=== PATIENT | male | born 1965 | race Caucasian/White ===

== ENCOUNTER 2018-01-19 00:19 | Emergency (ER) | payer BC ==
[2018-01-19 00:25] VITALS: TEMP 97.9
[2018-01-19] MEDS ORDERED: KETOROLAC 30 MG/ML 1 ML VIAL IVP STA (01:00)
[2018-01-19 01:35] LABS: Basophils # (A) 0.1 k/uL (0-0.2); Basophils % (A) 0 %; Eosinophils # (A) 0.2 k/uL (0-0.7); Eosinophils % (A) 1 %; HCT 45.6 % (39.0-53.0); HGB 16.2 gm/dL (13.0-17.5); Lymphocytes # (A) 2.8 k/uL (1.0-4.8); Lymphocytes % (A) 21 %; MCH 29.8 pg (25.0-35.0); MCHC 35.6 g/dL (31.0-37.0); MCV 83.6 fL (80.0-100.0); Mean Platelet Volume 7.3; Monocytes # (A) 0.9 k/uL (0-1.0); Monocytes % (A) 7 %; Neutrophils # (A) 9.2 k/uL (1.3-7.7); Neutrophils % (A) 68 %; Platelet Count 259 k/uL (150-450); RBC 5.45 m/uL (4.30-5.90); RDW 12.5 % (11.5-15.5); WBC 13.5 k/uL (3.8-10.6)
--- NOTE | 2018-01-19 01:53 | XR ---
EXAMINATION TYPE: XR foot complete LT DATE OF EXAM: 01/19/2018 COMPARISON: NONE HISTORY: Pain TECHNIQUE: 3 views FINDINGS: I see no fracture nor dislocation. Metatarsals are intact. The fourth toe iappears intact. Soft tissues appear normal. Joint spaces are normal. IMPRESSION: Negative left foot exam.
--- NOTE | 2018-01-19 02:13 | ED ---
General Adult HPI - General Chief complaint: Extremity Injury, Lower Stated complaint: FOOT INJURY/PAIN Time Seen by Provider: 01/19/18 00:38 Source: patient Mode of arrival: wheelchair Limitations: no limitations - History of Present Illness Initial comments: 52-year-old male patient presents to the emergency department today for evaluation of left great toe pain and swelling. Patient states that a few days ago he did accidentally kicked the dresser in the dark and broke his left fourth toe. States he had x-rays at his primary care physician's office which did confirm that the toe is fractured. Patient states that throughout the day today has left great toe has been hurting with ambulation. He states that the pain progressively worsened throughout the day. States at the end of the night when he looked at it was red and swollen. Patient denies any history of gout. Denies any significant intake of alcohol. Denies any history of similar symptoms. He states he did have chills earlier but denies any fever. Denies any known injury to the great toe. Patient denies any recent rash, shortness breath, chest pain, abdominal pain, nausea, vomiting, diarrhea, constipation, back pain, numbness, tingling, dizziness, weakness, hematuria, dysuria, urinary urgency, urinary frequency, headache, visual changes, or any other complaints. - Related Data Allergies Allergy/AdvReac Type Severity Reaction Status Date / Time acetaminophen Allergy Unknown Verified 01/19/18 00:25 [From Tylenol-Codeine #3] codeine Allergy Unknown Verified 01/19/18 00:25 [From Tylenol-Codeine #3] sulfamethoxazole Allergy Unknown Verified 01/19/18 00:26 [From Bactrim] trimethoprim [From Bactrim] Allergy Unknown Verified 01/19/18 00:26 Review of Systems ROS Statement: Those systems with pertinent positive or pertinent negative responses have been documented in the HPI. ROS Other: All systems not noted in ROS Statement are negative. Past Medical History Past Medical History: Hypertension History of Any Multi-Drug Resistant Organisms: None Reported Past Surgical History: No Surgical Hx Reported Past Psychological History: No Psychological Hx Reported Smoking Status: Never smoker Past Alcohol Use History: Occasional Past Drug Use History: None Reported General Exam Limitations: no limitations General appearance: alert, in no apparent distress, other (This is a well- developed, well-nourished adult male patient in no acute distress. Vital signs upon presentation are temperature 97.9F, pulse 117, respirations 18, blood pressure 155/99, pulse ox 98% on room air.) Eye exam: Present: normal appearance, PERRL, EOMI. Absent: scleral icterus, conjunctival injection, periorbital swelling ENT exam: Present: normal exam, normal oropharynx, mucous membranes moist Respiratory exam: Present: normal lung sounds bilaterally. Absent: respiratory distress, wheezes, rales, rhonchi, stridor Cardiovascular Exam: Present: regular rate, normal rhythm, normal heart sounds. Absent: systolic murmur, diastolic murmur, rubs, gallop, clicks Extremities exam: Present: full ROM, tenderness (Tenderness over the left first MTP joint), normal capillary refill, other (There is swelling and erythema noted surrounding the left first MTP joint, erythema extends up onto the left lateral foot). Absent: normal inspection, pedal edema, joint swelling, calf tenderness Neurological exam: Present: alert, oriented X3, CN II-XII intact Psychiatric exam: Present: normal affect, normal mood Skin exam: Present: warm, dry, intact, normal color. Absent: rash Course Vital Signs 01/19/18 01/19/18 00:21 02:35 Temperature 97.9 F Pulse Rate 117 H 79 Respiratory 18 16 Rate Blood Pressure 155/99 135/86 O2 Sat by Pulse 98 95 Oximetry Medical Decision Making - Medical Decision Making 52-year-old male patient presents to the emergency department today for evaluation of left great toe pain, redness, and swelling. Physical examination does reveal erythema and swelling to the left first MTP joint. Joint is tender to the touch. Labs reviewed and did reveal white blood cell count of 13.5. ESR was 7. Uric acid is 9.3. Patient symptoms and lab findings are consistent with gout. We did discuss use of anti-inflammatories as well as cultures seen. He is instructed to follow-up with his primary care physician to discuss maintenance medications once this acute flare has resolved. We did discuss low purine diet. I also did discuss the possibility of an early joint infection. Return parameters were discussed in detail. He verbalizes understanding and agrees with this plan. - Lab Data Result diagrams: 01/19/18 01:28 Lab Results 01/19/18 01/19/18 Range/Units 01:28 01:28 WBC 13.5 H (3.8-10.6) k/uL RBC 5.45 (4.30-5.90) m/uL Hgb 16.2 (13.0-17.5) gm/dL Hct 45.6 (39.0-53.0) % MCV 83.6 (80.0-100.0) fL MCH 29.8 (25.0-35.0) pg MCHC 35.6 (31.0-37.0) g/dL RDW 12.5 (11.5-15.5) % Plt Count 259 (150-450) k/uL Neutrophils % 68 % Lymphocytes % 21 % Monocytes % 7 % Eosinophils % 1 % Basophils % 0 % Neutrophils # 9.2 H (1.3-7.7) k/uL Lymphocytes # 2.8 (1.0-4.8) k/uL Monocytes # 0.9 (0-1.0) k/uL Eosinophils # 0.2 (0-0.7) k/uL Basophils # 0.1 (0-0.2) k/uL ESR 7 (0-15) mm/hr Uric Acid 9.3 H (3.5-8.5) mg/dL - Radiology Data Radiology results: report reviewed, image reviewed 3 views of the left foot are obtained. No fracture or dislocation is evident. Metatarsals are intact. The fourth toe appears intact. Soft tissues appear normal. Joint spaces are normal. Impression by Dr. Hernandez shows negative left foot exam. Disposition Clinical Impression: Gout attack Disposition: HOME SELF-CARE Condition: Good Instructions: Low Purine Diet (ED), Gout (ED) Additional Instructions: Follow pureing diet. Take medications as directed. Follow up with her primary care physician to discuss maintenance medication for gout. Return here immediately for any signs or symptoms of worsening infection. Return here immediately for any new, worsening, or concerning symptoms. Is patient prescribed a controlled substance at d/c from ED?: No Referrals: Filiberto Smiley MD [Primary Care Provider] - 1-2 days Time of Disposition: 03:03
[2018-01-19 02:35] VITALS: BP 135/86; PULSE 79; RESP 16
[2018-01-19] MEDS ORDERED: COLCHICINE 0.6 MG EACH PO STA ×2 (02:49→02:59)
[2018-01-19 02:50] LABS: Erythrocyte Sedimentation Rate 7 mm/hr (0-15)
== END 2018-01-19 03:23 | disposition home or self-care (01) ==
LOC: EC 00:19
DX: M10.9 Gout, unspecified (principal); Z88.1 Allergy status to other antibiotic agents; Z88.2 Allergy status to sulfonamides; Z88.5 Allergy status to narcotic agent; Z88.6 Allergy status to analgesic agent; W22.8XXA Striking against or struck by other objects, initial encounter
CPT/HCPCS: 36415; 85652; 84550; 85025; 73630; 99283; 96374; J1885

== ENCOUNTER 2020-03-15 09:14 | Emergency (ER) | payer BC ==
[2020-03-15 09:21] VITALS: RESP 18
[2020-03-15] MEDS ORDERED: KETOROLAC 30 MG/ML 1 ML VIAL IVP STA (09:38)
--- NOTE | 2020-03-15 09:43 | ED ---
Back Pain HPI - General Chief Complaint: Back Pain/Injury Stated Complaint: back pain Time Seen by Provider: 03/15/20 09:28 Source: patient, RN notes reviewed Limitations: no limitations - History of Present Illness Initial Comments: This is a 54-year-old male with a history of lumbar disc disease and scoliosis who states he had the onset 4 days ago of severe pain radiating down to the right leg. He is similar to his previous episodes of sciatica he states pain is sharp 9/10 severity he does not recall any particular injury no fevers chills nausea vomiting sweats no loss of function to his upper or lower extremities no urinary no fecal incontinence is no prior history of kidney stones. No other modifying factors at this time. He states he just can't get comfortable. He does state that he has similar episode about 10 years ago that was helped with Kaila BRICENO Complaint: back pain - Related Data Previous Rx's Medication Instructions Recorded Diclofenac Sodium/Misoprostol 1 each PO TID #21 tab.ir. 03/15/20 [Arthrotec 75 mg-200 Mcg Tab] Orphenadrine [Norflex] 100 mg PO Q12H #7 tablet.er 03/15/20 Allergies Allergy/AdvReac Type Severity Reaction Status Date / Time acetaminophen Allergy Unknown Verified 03/15/20 09:15 [From Tylenol-Codeine #3] codeine Allergy Unknown Verified 03/15/20 09:15 [From Tylenol-Codeine #3] sulfamethoxazole Allergy Unknown Verified 03/15/20 09:15 [From Bactrim] trimethoprim [From Bactrim] Allergy Unknown Verified 03/15/20 09:15 Review of Systems ROS Statement: Those systems with pertinent positive or pertinent negative responses have been documented in the HPI. ROS Other: All systems not noted in ROS Statement are negative. Past Medical History Past Medical History: Hypertension History of Any Multi-Drug Resistant Organisms: None Reported Past Surgical History: No Surgical Hx Reported Past Psychological History: No Psychological Hx Reported Smoking Status: Never smoker Past Alcohol Use History: Occasional Past Drug Use History: None Reported General Exam - General Exam Comments Initial Comments: This is a well-developed well-nourished awake alert oriented 3 male Limitations: no limitations General appearance: alert, anxious, in distress Eye exam: Present: normal appearance, PERRL, EOMI. Absent: scleral icterus, conjunctival injection, periorbital swelling ENT exam: Present: normal exam, mucous membranes moist Neck exam: Present: normal inspection, full ROM GI/Abdominal exam: Present: soft, normal bowel sounds. Absent: distended, tenderness, guarding, rebound, rigid Rectal exam: Present: deferred Extremities exam: Present: normal inspection, full ROM, normal capillary refill. Absent: tenderness Back exam: Present: normal inspection, tenderness, muscle spasm, paraspinal tenderness. Absent: full ROM, CVA tenderness (R), CVA tenderness (L), vertebral tenderness Neurological exam: Present: alert, oriented X3, CN II-XII intact Psychiatric exam: Present: normal affect, normal mood Skin exam: Present: warm, dry, intact, normal color. Absent: rash Course Vital Signs 03/15/20 09:17 Temperature 98 F Pulse Rate 80 Respiratory 18 Rate Blood Pressure 135/90 O2 Sat by Pulse 96 Oximetry Medical Decision Making - Medical Decision Making I did reevaluate patient several occasions he is feeling much improved after IV Toradol. He is able move much more freely than earlier he states the spasm is on patient will be discharged with Arthrotec and muscle relaxer prescription sent to his preferred pharmacy. We did discuss this. Patient will be discharged and follow-up as needed patient is consistent with sciatica and acute exacerbation of chronic low back pain - Radiology Data Radiology results: report reviewed (I did review the imaging and report no acute findings or is evidence of degenerative changes L4-L5), image reviewed Disposition Clinical Impression: Mechanical back pain, Sciatica Disposition: HOME SELF-CARE Condition: Good Instructions (If sedation given, give patient instructions): Acute Low Back Pain (ED), Sciatica (ED), Lower Back Exercises (ED) Prescriptions: Diclofenac Sodium/Misoprostol [Arthrotec 75 mg-200 Mcg Tab] 1 each PO TID #21 tab.ir. Orphenadrine [Norflex] 100 mg PO Q12H #7 tablet.er Is patient prescribed a controlled substance at d/c from ED?: No Referrals: Filiberto Smiley MD [Primary Care Provider] - 1-2 days
--- NOTE | 2020-03-15 10:10 | XR ---
EXAMINATION TYPE: XR lumbosacral spine min 4V , 5 VIEWS DATE OF EXAM ORDERED: 03/15/2020 HISTORY: Lumbar pain with right-sided sciatica. COMPARISON: None. FINDINGS: Vertebral body height and alignment are maintained. There is no evidence of spondylolysis or spondylolisthesis. There is disc space loss at L4-5 and there is mild hypertrophic spondylosis at this level. The facets are unremarkable. The pedicles are intact. IMPRESSION: 1. NO ACUTE OSSEOUS LESION. 2. DEGENERATIVE DISC DISEASE AND HYPERTROPHIC SPONDYLOSIS, L4-5.
[2020-03-15 11:00] VITALS: BP 126/89; PULSE 72; TEMP 97.7
== END 2020-03-15 11:00 | disposition home or self-care (01) ==
LOC: SUPCPDRO 09:14 → EC 09:14
DX: M54.40 Lumbago with sciatica, unspecified side (principal); Z88.6 Allergy status to analgesic agent; Z88.5 Allergy status to narcotic agent; Z88.2 Allergy status to sulfonamides
CPT/HCPCS: 72110; 99283; 96374; J1885

== ENCOUNTER 2020-12-03 07:29 | Emergency (ER) | payer BC ==
[2020-12-03 07:39] VITALS: TEMP 98
[2020-12-03] MEDS ORDERED: methylPREDNISolone SOD SUCCI 125 MG/2 ML VIAL IM ONE (08:08)
[2020-12-03] MEDS ORDERED: DIAZEPAM 5 MG/ML 2 ML INJ IM ONE (08:08)
--- NOTE | 2020-12-03 08:28 | ED ---
Lower Extremity Injury HPI - General Source: patient, RN notes reviewed Mode of arrival: ambulatory Limitations: no limitations - History of Present Illness -: week(s) (1) Injury: Leg: Right (from hip to foot) Type of Injury: other (denies injury) Severity scale (1-10): 10 Improves With: nothing Worsens With: movement Context: other (acute on chronic) Treatments Prior to Arrival: other (arthrotec) <Esteban Murillo - Last Filed: 12/03/20 10:20> <Asiya Connell - Last Filed: 12/09/20 23:51> - General Chief Complaint: Extremity Injury, Lower Stated Complaint: rt leg pain Time Seen by Provider: 12/03/20 07:42 - History of Present Illness Initial Comments: 55-year-old white male patient presents to the emergency room with complaints of right leg pain from the hip down to his foot. Patient states 1 week ago pain was on the left side and was seen at urgent care. Has been taking Arthrotec as needed for the past 10 years. States has been taking it like "candy" with no relief last dose at 5 AM. Patient states has a history of bulging disks and lumbar disc compression. He has seen orthopedic doctor in [place] and was being given epidural blocks but stopped when he was receiving relief with Arthrotec. Patient states currently pain 10 out of 10 and could not tolerate it or get comfortable or sleep so he came to the emergency room today. Patient denies incontinence of bowel or bladder, denies shortness of breath. (Esteban Murillo) - Related Data Home Medications Medication Instructions Recorded Confirmed Colchicine 0.6 mg PO DAILY PRN 12/03/20 12/03/20 Diclofenac Sodium/Misoprostol 1 tab PO DAILY 12/03/20 12/03/20 [Arthrotec 75 mg-200 Mcg Tab] Ibuprofen [Motrin Ib] 600 mg PO Q8H PRN 12/03/20 12/03/20 Losartan/Hydrochlorothiazide 1 tab PO HS 12/03/20 12/03/20 [Losartan-Hctz 100-12.5 mg Tab] Omeprazole 20 mg PO DAILY PRN 12/03/20 12/03/20 amLODIPine [Norvasc] 5 mg PO HS 12/03/20 12/03/20 Previous Rx's Medication Instructions Recorded Lidocaine 5% Patch [Lidoderm] 1 patch TOPICAL DAILY #30 patch 12/03/20 Allergies Allergy/AdvReac Type Severity Reaction Status Date / Time acetaminophen Allergy Unknown Verified 12/03/20 09:21 [From Tylenol-Codeine #3] codeine Allergy Unknown Verified 12/03/20 09:21 [From Tylenol-Codeine #3] sulfamethoxazole Allergy Unknown Verified 12/03/20 09:21 [From Bactrim] trimethoprim [From Bactrim] Allergy Unknown Verified 12/03/20 09:21 Review of Systems ROS Other: All systems not noted in ROS Statement are negative. Constitutional: Reports: as per HPI. Denies: fever, chills Respiratory: Denies: cough, dyspnea, wheezes, hemoptysis Cardiovascular: Denies: chest pain, edema, syncope Gastrointestinal: Denies: nausea, vomiting Musculoskeletal: Reports: back pain Neurological: Reports: numbness (numbness of left leg for one week) <Esteban Murillo - Last Filed: 12/03/20 10:20> ROS Other: All systems not noted in ROS Statement are negative. <Asiya Connell - Last Filed: 12/09/20 23:51> ROS Statement: Those systems with pertinent positive or pertinent negative responses have been documented in the HPI. Past Medical History Past Medical History: Hypertension, Osteoarthritis (OA) History of Any Multi-Drug Resistant Organisms: None Reported Past Surgical History: No Surgical Hx Reported Past Psychological History: No Psychological Hx Reported Smoking Status: Current some day smoker Past Alcohol Use History: Occasional Past Drug Use History: None Reported <Esteban Murillo - Last Filed: 12/03/20 10:20> General Exam Limitations: no limitations General appearance: alert, in no apparent distress Head exam: Present: atraumatic, normocephalic, normal inspection Eye exam: Present: normal appearance, PERRL, EOMI. Absent: scleral icterus, conjunctival injection, periorbital swelling Neck exam: Present: normal inspection, full ROM Respiratory exam: Absent: respiratory distress, wheezes, rales, chest wall tenderness Cardiovascular Exam: Absent: tachycardia, rubs, gallop, JVD GI/Abdominal exam: Present: soft, normal bowel sounds. Absent: distended, guarding Rectal exam: Present: deferred Extremities exam: Present: normal capillary refill. Absent: pedal edema Left Knee exam: Present: tenderness, ecchymosis, effusion, pain/laxity with valgus, pain/laxity with varus (bruis). Absent: abrasion, laceration, deformity, crepitus, dislocation, erythema Lower Leg exam: Absent: laceration, deformity, crepitus, dislocation, Homans' sign (pt able to toleration straight leg test bilaterally) Neurovascular tendon exam: Present: no vascular compromise. Absent: abnormal cap refill, motor deficit, sensory deficit, extremity cold to touch, pallor, foot drop Neurological exam: Present: alert, oriented X3, CN II-XII intact Psychiatric exam: Present: normal affect, normal mood Skin exam: Present: warm, dry, intact, normal color. Absent: rash <Esteban Murillo - Last Filed: 12/03/20 10:20> Course <Esteban Murillo - Last Filed: 12/03/20 10:20> Vital Signs 12/03/20 12/03/20 07:36 10:48 Temperature 98 F Pulse Rate 81 76 Respiratory 18 16 Rate Blood Pressure 137/93 112/89 O2 Sat by Pulse 97 97 Oximetry - Reevaluation(s) Reevaluation #1: 12/03/20 09:29 No relief from Solu-Medrol and Valium IM. Will give patient morphine 4 mg IM and reassess (Esteban Murillo) Reevaluation #2: 12/03/20 10:38 no relief with morphine, pt agreeable to going home with lidoderm patches, ultram and f/u with orthopedics (Esteban Murillo) Medical Decision Making <Esteban Murillo - Last Filed: 12/03/20 10:20> <Asiya Connell - Last Filed: 12/09/20 23:51> - Medical Decision Making Acute and chronic back pain, patient given Solu-Medrol and Valium with no relief and morphine 4 mg IM with no relief. Patient will be given referral to orthopedics for acute on chronic back pain, prescription for Lidoderm patches, and starter pack of Ultram for the acute pain. Instructed to return if bladder or bowel incontinence or inability to ambulate or worsening pain. (Esteban Murillo) I was available for consultation in the emergency department. The history and physical exam were done by the midlevel provider. I was consulted for this patients care. I reviewed the case with the midlevel provider and based on their presentation of the patient, I agree with the assessment, medical decision making and plan of care as documented. Chart was dictated using [employer] dictation software. Attempts were made to correct any dictation errors however some typographical errors may persist. (Asiya Connell) Disposition Is patient prescribed a controlled substance at d/c from ED?: No Time of Disposition: 10:30 Decision to Admit Reason: Admit from EC <Esteban Murillo - Last Filed: 12/03/20 10:20> <Asiya Connell - Last Filed: 12/09/20 23:51> Clinical Impression: Sciatic leg pain Clinical Impression: (Ruled Out): Knee pain, left Disposition: HOME SELF-CARE Condition: Good Instructions (If sedation given, give patient instructions): Chronic Back Pain (DC) Additional Instructions: Use Lidoderm patches, take Ultram as needed for pain. Continue home medications. Follow up with orthopedics for continuation of care. Prescriptions: Lidocaine 5% Patch [Lidoderm] 1 patch TOPICAL DAILY #30 patch Referrals: Filiberto Smiley MD [Primary Care Provider] - 1-2 days Hayden Krishnan DO [Doctor of Osteopathic Medicine] - 1-2 days
[2020-12-03] MEDS ORDERED: MORPHINE SULFATE 4 MG/ML SYRINGE IM STA (09:14)
[2020-12-03] MEDS ORDERED: traMADol 50 MG STARTER PACK 3 TAB BTL PO STA (10:35)
[2020-12-03 10:50] VITALS: BP 112/89; PULSE 76; RESP 16
== END 2020-12-03 10:48 | disposition home or self-care (01) ==
LOC: EC 07:29
DX: M54.32 Sciatica, left side (principal); G89.29 Other chronic pain; F17.200 Nicotine dependence, unspecified, uncomplicated; I10 Essential (primary) hypertension; M19.90 Unspecified osteoarthritis, unspecified site; Z79.899 Other long term (current) drug therapy; Z88.6 Allergy status to analgesic agent; Z88.5 Allergy status to narcotic agent; Z88.2 Allergy status to sulfonamides; Z88.1 Allergy status to other antibiotic agents
CPT/HCPCS: 99283; 96372 ×3; J2270; J2930; J3360

== ENCOUNTER → 2021-06-22 | Outpatient (CLI) | payer BC ==
--- NOTE | 2021-06-22 15:52 | XR ---
EXAMINATION TYPE: XR chest 2V DATE OF EXAM: 06/22/2021 COMPARISON: 01/20/2013 INDICATION: Preop chest TECHNIQUE: Frontal and lateral views of the chest are obtained. FINDINGS: The heart size is normal. The pulmonary vasculature is normal. The lungs are clear. IMPRESSION: 1. No acute pulmonary process.
== END | disposition home or self-care (01) ==
LOC: LABPAT 15:11
PROVIDERS: ATTEND Orthopaedic Surgery Orthopaedic Surgery of the Spine
DX: Z01.818 Encounter for other preprocedural examination (principal); M51.26 Other intervertebral disc displacement, lumbar region
CPT/HCPCS: 71046; 80048; 85025; 85610; 85730; 86850; 86900; 86901

== ENCOUNTER 2021-07-01 10:36 | Day surgery (SDC) | payer BC ==
[2021-06-22 15:49] LABS: Basophils # (A) 0.1 k/uL (0-0.2); Basophils % (A) 1 %; Eosinophils # (A) 0.2 k/uL (0-0.7); Eosinophils % (A) 2 %; HGB 16.3 gm/dL (13.0-17.5); Lymphocytes # (A) 1.6 k/uL (1.0-4.8); Lymphocytes % (A) 18 %; MCH 29.7 pg (25.0-35.0); MCHC 33.4 g/dL (31.0-37.0); Mean Platelet Volume 8.6; Monocytes # (A) 0.7 k/uL (0-1.0); Monocytes % (A) 8 %; Neutrophils % (A) 69 %; Platelet Count 222 k/uL (150-450); RDW 12.7 % (11.5-15.5); WBC 8.8 k/uL (3.8-10.6)
[2021-06-22 15:57] LABS: Calcium 9.6 mg/dL (8.4-10.2); Potassium 3.8 mmol/L (3.5-5.1)
[2021-06-22 16:04] LABS: INR 0.9 (<1.2); Partial Thromboplastin Time 23.8 sec (22.0-30.0); Prothrombin Time 10.2 sec (9.0-12.0)
[2021-06-29 08:38] VITALS: BMI 26.7
[~2021-07-01 10:36] MED LIST: ceFAZolin 1,000 MG in SODIUM CHLORIDE 0.9% IRRIGATIO 1,000 ML IRRIGATION PRN
[2021-07-01] MEDS ORDERED: LACTATED RINGERS 1,000 ML IV ONE ×3 (11:20→16:50)
[2021-07-01] MEDS ORDERED: ONDANSETRON 4 MG/2 ML VIAL IVP ONE (11:20)
[2021-07-01] MEDS ORDERED: ONDANSETRON 4 MG/2 ML VIAL ONE (11:26)
[2021-07-01] MEDS ORDERED: MIDAZOLAM 2 MG/2 ML VIAL ONE (12:27)
[2021-07-01] MEDS ORDERED: ROCURONIUM 10 MG/ML (5 ML VIAL) IV ONE (12:27)
[2021-07-01] MEDS ORDERED: LIDOCAINE 1% INJ 10MG/ML (20 ML MDV) ONE (12:27)
[2021-07-01] MEDS ORDERED: KETAMINE 10 MG/ML 20 ML VIAL ONE (12:27)
[2021-07-01] MEDS ORDERED: fentaNYL (PF) 50 MCG/ML 2 ML AMP ONE (12:27)
[2021-07-01] MEDS ORDERED: HYDROmorphone (PF) 1 MG/ML ONE (12:27)
[2021-07-01] MEDS ORDERED: SUCCINYLCHOLINE CHLORIDE 100 MG/5 ML SYR IV ONE (12:27)
[2021-07-01] MEDS ORDERED: PROPOFOL 10 MG/ML 20 ML VIAL IV ONE (12:27)
[2021-07-01] MEDS ORDERED: PHENYLEPHRINE-0.9% NACL SYG 1,000 MCG/10 ML SYRINGE ONE (12:27)
[2021-07-01] MEDS ORDERED: LIDOCAINE 0.5%-EPI 1:200,000 50 ML VIAL SQ ONE (12:32)
[2021-07-01] MEDS ORDERED: THROMBIN (BOVINE) 5,000 UNIT VIAL TOPICAL ONE (12:32)
[2021-07-01] MEDS ORDERED: GELATIN SPONGE,ABSORB (LARGE) 1 EACH SPONGE TOPICAL ONE (12:32)
[2021-07-01] MEDS ORDERED: methylPREDNISolone ACETATE 40 MG/ML 1 ML VIAL MISCELLANE ONE (12:32)
[2021-07-01] MEDS ORDERED: KETOROLAC 15 MG/ML 1 ML VIAL IVP ONE (14:00)
[2021-07-01] MEDS ORDERED: HYDROmorphone 0.5 MG/0.5 ML SYRINGE IVP ONE ×3 (14:01→15:30)
--- NOTE | 2021-07-01 14:01 | FL ---
EXAMINATION TYPE: FL guidance operating room, XR lumbar spine 2 or 3V DATE OF EXAM: 07/01/2021 CLINICAL HISTORY: Low back pain. Intraoperative lumbar spine 2 views. TECHNIQUE: Fluoroscopy. COMPARISON: Lumbar spine x-ray March 15, 2020. FINDINGS: Fluoroscopic guidance was provided during lumbar discectomy procedure performed by Dr. Slade kerns. A total of 1 seconds of fluoroscopic time was utilized during the procedure and 2 spot images wa s acquired. Images acquired show needle localization for surgical planning suspected at posterior sup erior L4 level. IMPRESSION: As Above.
[2021-07-01] MEDS ORDERED: HYDROcodone/APAP 5-325MG 1 EACH TAB PO PRN (14:03)
[2021-07-01] MEDS ORDERED: HYDROmorphone 0.5 MG/0.5 ML SYRINGE IVP PRN (14:03)
[2021-07-01] MEDS ORDERED: BENZOCAINE/MENTHOL LOZENG 1 EACH LOZENGE MUCOUS MEM PRN (14:03)
[2021-07-01] MEDS ORDERED: diazePAM 5 MG TAB PO PRN (14:03)
[2021-07-01] MEDS ORDERED: ONDANSETRON 4 MG/2 ML VIAL IVP PRN (14:04)
[2021-07-01] MEDS ORDERED: IBUPROFEN 600 MG TAB PO PRN (14:04)
[2021-07-01] MEDS ORDERED: CYCLOBENZAPRINE 10 MG TAB PO PRN (14:04)
[2021-07-01] MEDS ORDERED: KETOROLAC 15 MG/ML 1 ML VIAL IVP PRN (14:04)
[2021-07-01] MEDS ORDERED: ACETAMINOPHEN TAB 500 MG TAB PO PRN (14:04)
[2021-07-01] MEDS ORDERED: COLCHICINE 0.6 MG EACH PO PRN (14:07)
[2021-07-01] MEDS ORDERED: PANTOPRAZOLE 40 MG TABLET PO PRN (14:07)
--- NOTE | 2021-07-01 14:19 | P.OP ---
Date of Procedure: 07/01/21 Preoperative Diagnosis: Herniated nucleus pulposis L3 4 and L5-S1, bilateral lower extremity radiculopathy, bilateral lower extremity weakness, Postoperative Diagnosis: Same Anesthesia: GETA Pathology: none sent Condition: stable Disposition: PACU Description of Procedure: BRIEF OPERATIVE NOTE Preoperative Diagnosis:Herniated nucleus pulposis L3 4 and L5-S1, bilateral lower extremity radiculopathy, bilateral lower extremity weakness, Postoperative Diagnosis: Same Procedure: Laminectomy and decompression with partial medial facetectomy and foraminotomy at L3 4 and L5-S1 Discectomy for decompression at L3 4 on the right and at L5-S1 on the left Surgeon: Dr. Krishnan Seniour Insight Manager: Jr Ochoa is present throughout the entire the case persistence during positioning, dissection, exposure, visualization, and all crucial elements of the case as well as closure. Anesthesia: General anesthesia Estimated blood loss: Approximately 100 mL Complications: None apparent Components implanted: None Disposition: To recovery room in good stable condition. OPERATIVE INDICATIONS The patient has been having issues in their lower back and lower extremities. He is having significant pain at his bilateral lower extremity is over different distributions. On the left side he was having pain at the back of his leg into his calf and was having weakness at his left calf. At his right side he is having pain which would wrap around his leg and over the front of his knee and lower leg. He was found have disc herniations which related well with these. He was found have a right paracentral disc herniation at L3 4 and a left paracentral disc disc herniation with extruded fragment at L5-S1. He also had significant disc degeneration and disc height loss at L4 5. The patient has been through conservative treatment. We discussed the possibility of surgical intervention. We discussed possibly laminectomy at one or both levels at L3 4 and L5-S1. We also discussed the issues with L4 5 and the fact that he has severe disc degeneration at that level. We discussed the possibility of fusion surgery and the possible need for further surgery in the future. He understood his issues and with his leg issues and weakness he elected to proceed with laminectomy decompression with discectomy at L3 4 and L5-S1. We discussed various treatment options including surgery, and the patient wishes to proceed with surgery We discussed the risk, patient's alternatives and benefits of surgery including but not limited to, risk of bleeding risk of infection, risk of need for further surgery, risk of decreased, loss of motion, loss of function, nerve damage, paralysis, heart attack, blindness and . OPERATIVE SUMMARY After discussing all the risks, patient alternatives and benefits at length, the patient elected to proceed with surgical intervention, signed informed consent, and presented for their procedure. The patient was seen and examined in the preoperative holding area and the surgical site was marked. The patient was given antibiotics and brought to the operating room. The patient was sedated and intubated by anesthesia in standard fashion. The patient was positioned on to the operating room table in a prone position on the appropriate frame which was well-padded and well molded. We were careful to pad any bony prominences and pressure points. We were careful to maintain the patient's cervical spine and good neutral alignment and position throughout. The patient was prepped and draped in a normal standard fashion. An appropriate timeout and keystone protocol performed. We were able to proceed with the surgery. Fluoroscopy was utilized to establish the appropriate level. The local wound area was infiltrated with local anesthetic. An incision was made at the midline longitudinally over the appropriate levels first at L5-S1 and then at L3 4. Dissection was taken down subcutaneously to the level of the fascia which was split midline. Dissection was taken over the lamina. Intraoperative fluoroscopy was taken which showed a marker at the appropriate level first at L5-S1 on the left and then L3 4 on the right. I performed a similar laminectomy foraminotomy and discectomy at each of the levels first at L5-S1 on the left and then at L3 4 on the right. With the appropriate level positively confirmed, we were able to proceed with laminectomy. The wound was copiously irrigated and suctioned dry as had been done periodically throughout the case. I performed a laminectomy with a combi nation of curettes and a high-speed bur and Kerrison rongeurs. A small medial facetectomy was performed again further access. A partial foraminotomy was also performed. Portions of the ligamentum flavum were taken down to expose the dura and traversing nerve root. I was able to mobilize the traversing nerve root and gain access to the disc space. Note was made of obvious compression from the disc. Protecting the soft tissue structures, a small annulotomy was established. Note was made of obvious disc herniation and protrusion with stenosis at L5-S1 on the left and L3 4 on the right. I was able to perform discectomy and remove any extruded disc fragments and any loose fragments from within the disc itself. There is some disc desiccation noted. I tried to preserve the disc annulus that appeared stable. There were no further extruded fragments noted. There is no evidence of dural tear or leak. Good hemostasis maintained. The wound was copiously irrigated and suctioned dry. Good decompression and discectomy was noted. This was done first at L5-S1 and then at L3 4. We were able to proceed with closure. The fascia was closed for a watertight closure. The subcuticular tissue was closed with absorbable suture. The wound was cleaned and dried and dressed with the appropriate dressing. The drapes were broken down. The patient was gently rolled back onto their hospital bed being careful to maintain their cervical spine and good neutral alignment and position. They were woken up by anesthesia, extubated, and brought to the recovery room in good stable condition. The patient will be admitted to the hospital for observation and for appropriate postoperative care, medical management and monitoring. We will continue to follow them closely about the postoperative course.
[2021-07-01 14:39] VITALS: RESP 16; TEMP 97.8
[2021-07-01 18:36] VITALS: BP 123/71; PULSE 84
[2021-07-01] MEDS ORDERED: NON FORMULARY DRUG (Losartan/Hydrochlorothiazide [Losartan-Hctz 100-12.5 Mg Tab] 1 EACH Ta PO SCH (21:00)
[2021-07-01] MEDS ORDERED: amLODIPine 5 MG TAB PO SCH (21:00)
[2021-07-02] MEDS ORDERED: DICLOFENAC SODIUM PO SCH (09:00)
[2021-07-02] MEDS ORDERED: MISOPROSTOL PO SCH (09:00)
[2021-07-02] MEDS ORDERED: [UNRECOGNIZED DRUG - OTHER] PO SCH (09:00)
== END 2021-07-01 18:34 | disposition home or self-care (01) ==
LOC: OR 10:36
PROVIDERS: ATTEND Orthopaedic Surgery Orthopaedic Surgery of the Spine
DX: M51.16 Intervertebral disc disorders with radiculopathy, lumbar region (principal); I10 Essential (primary) hypertension; K21.9 Gastro-esophageal reflux disease without esophagitis; M10.9 Gout, unspecified; Z82.49 Family history of ischemic heart disease and other diseases of the circulatory system; F17.200 Nicotine dependence, unspecified, uncomplicated; Z79.899 Other long term (current) drug therapy; Z88.5 Allergy status to narcotic agent; Z88.2 Allergy status to sulfonamides; Z91.048 Other nonmedicinal substance allergy status
CPT/HCPCS: 86900; 86901; 80048; 85025; 85610; 85730; 86850; 72100; 63047; 63048; J2250; J1030; J0690 ×2; J2405; J2001; J3010; J1170 ×2; J1885; J2370; J0330; J2704

== ENCOUNTER 2021-07-05 16:33 | Emergency (ER) | payer BC ==
--- NOTE | 2021-07-05 17:52 | ED ---
General Adult HPI - General Stated complaint: PostOp Wound Care Time Seen by Provider: 07/05/21 17:50 - History of Present Illness Initial comments: 55 year-old male patient presents for surgical wound evaluation. He had laminectomy of L3, L5-S1 on Tuesday with Dr. Krishnan. States his father in law changed the dressing today and noticed pus. States that he does have pain to the back, not worse than it has been. He denies any fever or chills. Denies any nausea or vomiting. Denies any other concerns. - Related Data Home Medications Medication Instructions Recorded Confirmed Colchicine 0.6 mg PO DAILY PRN 12/03/20 06/29/21 Diclofenac Sodium/Misoprostol 1 tab PO DAILY 12/03/20 06/29/21 [Arthrotec 75 mg-200 Mcg Tab] Losartan/Hydrochlorothiazide 1 tab PO HS 12/03/20 06/29/21 [Losartan-Hctz 100-12.5 mg Tab] Omeprazole 20 mg PO DAILY PRN 12/03/20 06/29/21 amLODIPine [Norvasc] 5 mg PO HS 12/03/20 06/29/21 Ciprofloxacin HCl [Cipro] 500 mg PO Q12H 06/29/21 06/29/21 Previous Rx's Medication Instructions Recorded traMADol HCL [Ultram] 50 mg PO Q6HR PRN 3 Days #12 tab 07/01/21 Allergies Allergy/AdvReac Type Severity Reaction Status Date / Time acetaminophen Allergy Swelling Verified 07/05/21 17:53 [From Tylenol-Codeine #3] codeine Allergy Swelling Verified 07/05/21 17:53 [From Tylenol-Codeine #3] sulfamethoxazole Allergy Swelling Verified 07/05/21 17:53 [From Bactrim] trimethoprim [From Bactrim] Allergy Swelling Verified 07/05/21 17:53 Review of Systems ROS Statement: Those systems with pertinent positive or pertinent negative responses have been documented in the HPI. ROS Other: All systems not noted in ROS Statement are negative. Past Medical History Past Medical History: Hypertension, Osteoarthritis (OA) History of Any Multi-Drug Resistant Organisms: None Reported Past Surgical History: No Surgical Hx Reported Past Alcohol Use History: Occasional General Exam General appearance: alert, in no apparent distress, other (This is a well- developed, well-nourished adult male patient in no acute distress. Vital signs upon presentation temperature 98.7F, pulse 66, respirations 18, blood pressure 120/78, pulse ox 96% on room air) ENT exam: Present: normal exam, normal oropharynx, mucous membranes moist Respiratory exam: Present: normal lung sounds bilaterally. Absent: respiratory distress, wheezes, rales, rhonchi, stridor Cardiovascular Exam: Present: regular rate, normal rhythm, normal heart sounds. Absent: systolic murmur, diastolic murmur, rubs, gallop, clicks Back exam: Present: normal inspection, other (Lower midline incision, approximated with skin adhesive. No surrounding erythema. No drainage. No swelling.) Neurological exam: Present: alert, oriented X3, CN II-XII intact Psychiatric exam: Present: normal affect, normal mood Skin exam: Present: warm, dry, intact, normal color. Absent: rash Course Vital Signs 07/05/21 17:48 Temperature 98.7 F Pulse Rate 66 Respiratory 18 Rate Blood Pressure 120/78 O2 Sat by Pulse 96 Oximetry Medical Decision Making - Medical Decision Making 55 year-old male patient presents to the emergency department for evaluation of low back incision. Physical examination showed well approximated incision, no drainage, no surrounding erythema, no swelling. Patient denies any radicular pain or loss of bowel or bladder control. There are bits of dressing adhered to the skin adhesive, this is what the patient was concerned about. This is not purulent drainage. He will be discharged to follow up as planned. Return parameters were discussed in detail. Patient verbalizes understanding and agrees with this plan. My attending is Dr. Valenzuela. Disposition Clinical Impression: Encounter for wound re-check Disposition: HOME SELF-CARE Condition: Good Instructions (If sedation given, give patient instructions): Skin Adhesive Care (ED) Additional Instructions: Follow up with Dr. Krishnan as planned. If you have any new, worsening, or concerning symptoms return to the emergency department. Is patient prescribed a controlled substance at d/c from ED?: No Referrals: Filiberto Smiley MD [Primary Care Provider] - 1-2 days Hayden Krishnan DO [Doctor of Osteopathic Medicine] - 1-2 days Time of Disposition: 17:55
[2021-07-05 17:53] VITALS: BP 120/78; PULSE 66; RESP 18; TEMP 98.7
== END 2021-07-05 18:11 | disposition home or self-care (01) ==
LOC: EC 16:33
DX: Z48.01 Encounter for change or removal of surgical wound dressing (principal); I10 Essential (primary) hypertension; M19.90 Unspecified osteoarthritis, unspecified site; Z79.899 Other long term (current) drug therapy; Z88.1 Allergy status to other antibiotic agents; Z88.2 Allergy status to sulfonamides; Z88.5 Allergy status to narcotic agent; Z88.6 Allergy status to analgesic agent
CPT/HCPCS: 99282

== ENCOUNTER → 2022-06-05 | Outpatient (CLI) | payer BC ==
[2022-06-05 16:37] LABS: HCT 48.4 % (39.6-50.0); HGB 16.4 g/dL (13.0-17.0); MCH 29.6 pg (27.0-32.0); MCHC 33.9 g/dL (32.0-37.0); MCV 87.4 fL (80.0-97.0); Mean Platelet Volume 11.6 fL (9.5-12.2); NRBC Per 100 WBC 0 /100 WBCS (0.0-0.0); Platelet Count 252 X 10*3/uL (140-440); RBC 5.54 X 10*6/uL (4.40-5.60); RDW 12.7 % (11.5-14.5); WBC 6.97 X 10*3/uL (4.50-10.00)
[2022-06-05 17:17] LABS: ALT 39 U/L (10-49); AST 19 U/L (14-35); African American GFR (CKD) 87.1 (60.0-200.0); Albumin 4.2 g/dL (3.8-4.9); Albumin/Globulin Ratio 1.68 (1.60-3.17); Alkaline Phosphatase 67 U/L (41-126); Blood Urea Nitrogen 16.5 mg/dL (9.0-27.0); Calcium 9.5 mg/dL (8.7-10.3); Carbon Dioxide 25.4 mmol/L (20.0-27.5); Chloride 106 mmol/L (96-109); Chol/HDL Ratio 3.76 Ratio; Globulin 2.5 g/dL (1.6-3.3); Glucose 103 mg/dL (70-110); LDL Cholesterol,Calculated 80.7 mg/dL (0.0-131.0); Non-African American GFR(CKD) 75.2 (60.0-200.0); Sodium 141 mmol/L (135-145); Total Protein 6.7 g/dL (6.2-8.2); VLDL Calculation 19.14 mg/dL (5.00-40.00)
== END | disposition home or self-care (01) ==
LOC: LABWHC1 10:09
PROVIDERS: ATTEND Family Medicine
DX: Z00.01 Encounter for general adult medical examination with abnormal findings (principal)
CPT/HCPCS: 36415; 80053; 80061; 84153; 85027

== ENCOUNTER → 2023-12-22 | Outpatient (CLI) | payer OTHER ==
--- NOTE | 2023-12-23 16:44 | MR ---
EXAMINATION TYPE: MR Prostate wo/w con DATE OF EXAM: 12/22/2023 7:46 AM COMPARISON: None. CLINICAL INDICATION:Male, 58 years old with history of R97.20 ELEVATED PROSTATE SPECIFIC ANTIGE; Elev ated PSA TECHNIQUE: Multi-planar, multi-sequence imaging of the pelvis is performed prior to and following the uncomplicated administration of bolus intravenous gadolinium. CONTRAST: 10 Gadavist Interpretive Criteria: PI-RADS v2.1 SERUM PSA: 4.8 on July 2023. 5.1 on September 2023. SURGICAL PATHOLOGY: No data available. FINDINGS: Prostatic dimensions: 5.8 x 5.1 x 4.7 cm. Ellipsoid Volume:72.79 (PSA density=0.07 ng/mL/mL) CENTRAL GLAND (Central and Transition Zones/CZ+TZ): Multiple bilateral, heterogenous appearing hypertrophic stromal nodules, without suspicious lesion. M edian lobe hypertrophy with protrusion into the base of the bladder. (PI-RADS 2) PERIPHERAL ZONE (PZ): Bilateral linear, indistinct wedgelike areas of low ADC, and low T2 signal, No evidence of masslike a bnormality, or localized perfusional hypervascularity, to further suggest a focus of clinically signi ficant prostate cancer. (PI-RADS 2) SEMINAL VESICLES (SV): Symmetric and unremarkable. PERIPROSTATIC TISSUES: Unremarkable. LYMPH NODES: No enlarged pelvic lymph node. REMAINING PELVIS: Bladder wall is within normal limits given distention. No abnormal free or organized intrapelvic fluid collection. No pathologic bowel dilation or mural thickening. Colonic diverticula are present. No hernia visualized OSSEOUS STRUCTURES: No suspicious osseous abnormality. Focal fat high T2 signal within the left ischium. IMPRESSION: 1. No specific features for high-risk prostate cancer. Maximum PI-RADS score: 2. 2. Moderate BPH, estimated gland volume 72.79 mL. 3. No suspicious osseous lesion. No lymphadenopathy. No evidence of prostate adenocarcinoma involving the periprostatic tissues.
== END | disposition home or self-care (01) ==
LOC: RADMRIMAIN 06:05
PROVIDERS: ATTEND Urology
DX: N40.0 Benign prostatic hyperplasia without lower urinary tract symptoms (principal); R97.20 Elevated prostate specific antigen [PSA]
CPT/HCPCS: 72197; A9585

== ENCOUNTER 2024-07-27 19:18 | Emergency (ER) | payer OTHER, BC ==
[2024-07-27 19:24] VITALS: TEMP 98
--- NOTE | 2024-07-27 19:51 | ED ---
Allergic Reaction HPI - General Chief complaint: Allergic Reaction Stated complaint: Allergic reaction Time Seen by Provider: 07/27/24 19:30 Source: patient, EMS, RN notes reviewed Mode of arrival: EMS Limitations: no limitations - History of Present Illness Initial Comments: This is a 58-year-old male with history of hypertension presenting to the emergency department via EMS for chief complaint of a presumed allergic reaction. 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 Patient was provided with dose of Benadryl and epinephrine and route. Patient states that his lip swelling has significantly decreased since initial reaction. States that the hives on his arms are itchy. Patient states that he has a known history to Tylenol with codeine and to an antibiotic. Patient denies use of new soaps, lotions, detergents, perfumes. Denies ingestion of new foods or medications. He is denying shortness of breath, chest pain, or difficulty breathing. - Related Data Home Medications Medication Instructions Recorded Confirmed Colchicine 0.6 mg PO DAILY PRN 12/03/20 06/29/21 Diclofenac Sodium/Misoprostol 1 tab PO DAILY 12/03/20 06/29/21 [Arthrotec 75 mg-200 Mcg Tab] Losartan/Hydrochlorothiazide 1 tab PO HS 12/03/20 06/29/21 [Losartan-Hctz 100-12.5 mg Tab] Omeprazole 20 mg PO DAILY PRN 12/03/20 06/29/21 amLODIPine [Norvasc] 5 mg PO HS 12/03/20 06/29/21 Ciprofloxacin HCl [Cipro] 500 mg PO Q12H 06/29/21 06/29/21 Previous Rx's Medication Instructions Recorded traMADol HCL [Ultram] 50 mg PO Q6HR PRN 3 Days #12 tab 07/01/21 EPINEPHrine (Auto Inject) [Epipen] 0.3 mg IM ONCE PRN #1 each 07/27/24 predniSONE 50 mg PO DAILY #5 tab 07/27/24 Allergies Allergy/AdvReac Type Severity Reaction Status Date / Time acetaminophen Allergy Swelling Verified 07/27/24 19:25 [From Tylenol-Codeine #3] codeine Allergy Swelling Verified 07/27/24 19:25 [From Tylenol-Codeine #3] sulfamethoxazole Allergy Swelling Verified 07/27/24 19:25 [From Bactrim] trimethoprim [From Bactrim] Allergy Swelling Verified 07/27/24 19:25 Review of Systems ROS Statement: Those systems with pertinent positive or pertinent negative responses have been documented in the HPI. ROS Other: All systems not noted in ROS Statement are negative. Past Medical History Past Medical History: Hypertension, Osteoarthritis (OA) History of Any Multi-Drug Resistant Organisms: None Reported Past Surgical History: No Surgical Hx Reported Past Psychological History: No Psychological Hx Reported Past Alcohol Use History: Occasional General Exam Limitations: no limitations General appearance: alert, in no apparent distress Eye exam: Present: normal appearance, PERRL, EOMI. Absent: scleral icterus, conjunctival injection, periorbital swelling Expanded Mouth exam: Present: tongue normal, other (inferior lip edema). Absent: normal external inspection, drooling, trismus, muffled voice, tongue elevation Neck exam: Present: normal inspection. Absent: tenderness, meningismus, lymphadenopathy Respiratory exam: Present: normal lung sounds bilaterally. Absent: respiratory distress, wheezes, rales, rhonchi, stridor Cardiovascular Exam: Present: regular rate, normal rhythm, normal heart sounds. Absent: systolic murmur, diastolic murmur, rubs, gallop, clicks GI/Abdominal exam: Present: soft, normal bowel sounds. Absent: distended, tenderness, guarding, rebound, rigid Extremities exam: Present: normal inspection, full ROM, normal capillary refill. Absent: tenderness, pedal edema, joint swelling, calf tenderness Back exam: Present: normal inspection Skin exam: Present: warm, dry, urticaria Course Vital Signs 07/27/24 07/27/24 07/27/24 19:20 20:37 22:08 Temperature 98.0 F Pulse Rate 86 74 71 Respiratory 18 18 16 Rate Blood Pressure 140/87 110/66 103/59 O2 Sat by Pulse 98 96 95 Oximetry 07/27/24 22:49 Temperature Pulse Rate 76 Respiratory 16 Rate Blood Pressure 105/66 O2 Sat by Pulse 95 Oximetry Medical Decision Making - Medical Decision Making Was pt. sent in by a medical professional or institution (, PA, HEALTH INSURANCE ADJUSTER, urgent care, hospital, or senior care...) When possible be specific @ -No Did you speak to anyone other than the patient for history (EMS, parent, family, police, friend...)? What history was obtained from this source @ -No Did you review nursing and triage notes (agree or disagree)? Why? @ -I reviewed and agree with nursing and triage notes Were old charts reviewed (outside hosp., previous admission, EMS record, old EKG, old radiological studies, urgent care reports/EKG's, senior care records)? Report findings @ -No old charts were reviewed Differential Diagnosis (chest pain, altered mental status, abdominal pain women, abdominal pain men, vaginal bleeding, weakness, fever, dyspnea, syncope, headache, dizziness, GI bleed, back pain, seizure, CVA, palpatations, mental health, musculoskeletal)? @ -Contact dermatitis, anaphylaxis, urticaria, this list is not all inclusive EKG interpreted by me (3pts min.). @ -completed at 1931 sinus rhythm with a first-degree AV block, ventricular rate of 93, MT interval 220, QRS 85, QTc 406. No acute signs of ischemia X-rays interpreted by me (1pt min.). @ -None done CT interpreted by me (1pt min.). @ -None done U/S interpreted by me (1pt. min.). @ -None done What testing was considered but not performed or refused? (CT, X-rays, U/S, labs)? Why? @ -None What meds were considered but not given or refused? Why? @ -None Did you discuss the management of the patient with other professionals (professionals i.e. , PA, HEALTH INSURANCE ADJUSTER, lab, RT, psych nurse, psychotherapist social worker, medicine tech, teacher, police officer, behavioral health case manager)? Give summary @ -No Was smoking cessation discussed for >3mins.? @ -No Was critical care preformed (if so, how long)? @ -No Were there social determinants of health that impacted care today? How? (Homelessness, low income, unemployed, alcoholism, drug addiction, transportation, low edu. Level, literacy, decrease access to med. care, care home, rehab)? @ -No Was there de-escalation of care discussed even if they declined (Discuss DNR or withdrawal of care, Hospice)? DNR status @ -No What co-morbidities impacted this encounter? (DM, HTN, Smoking, COPD, CAD, Cancer, CVA, ARF, Chemo, Hep., AIDS, mental health diagnosis, sleep apnea, morbid obesity)? @ -None Was patient admitted / discharged? Hospital course, mention meds given and route, prescriptions, significant lab abnormalities, going to OR and other pertinent info. @ -Discharge. 58-year-old male with allergic reaction. On evaluation patient noted to have angioedema with your lip swelling. Patient is not exhibiting signs of respiratory distress. His vitals are stable and is standing at 98% oxygen on room air. There is no tongue elevation, tongue swelling, eyelid swelling. Patient is not exhibiting stridorous or difficulty breathing. He is noted to have a urticarial rash over the bilateral upper extremities and of the back. Patient states that this is pruritic. Patient was provided with dose of Benadryl and epinephrine and route via EMS. He is provided with dose of Solu- Medrol and Pepcid in the emergency department. Patient was held in the emergency department and observed for approximately 2 hours with no signs of respiratory compromise or worsening symptoms. Patient is stable for discharge at this time. He is provided with short course of steroids and a EpiPen. All questions open answered at bedside answered return parameters discussed with the patient he is verbalized understanding. Case discussed with my attending Dr. Reynoso Undiagnosed new problem with uncertain prognosis? @ -No Drug Therapy requiring intensive monitoring for toxicity (Heparin, Nitro, Ins ulin, Cardizem)? @ -No Were any procedures done? @ -No Diagnosis/symptom? @ - angioedema, urticaria, allergic reaction Acute, or Chronic, or Acute on Chronic? @ -Acute Uncomplicated (without systemic symptoms) or Complicated (systemic symptoms)? @ -uncomplicated Side effects of treatment? @ -No Exacerbation, Progression, or Severe Exacerbation? @ -No Poses a threat to life or bodily function? How? (Chest pain, [place], [place], pneumonia, PE, COPD, DKA, ARF, appy, cholecystitis, CVA, Diverticulitis, Homicidal, Suicidal, threat to staff... and all critical care pts) @ -No Disposition Clinical Impression: Allergic reaction Disposition: HOME SELF-CARE Condition: Stable Instructions (If sedation given, give patient instructions): Anaphylaxis (ED) Additional Instructions: Please return to the Emergency Department if symptoms worsen or any other concerns. Complete full course of steroids as prescribed. Recommend that you take Benadryl as needed for hives and itching. Schedule follow-up appoint with your primary care provider in the next week for further evaluation. Prescriptions: EPINEPHrine (Auto Inject) [Epipen] 0.3 mg IM ONCE PRN #1 each PRN Reason: Anaphylaxis predniSONE 50 mg PO DAILY #5 tab Is patient prescribed a controlled substance at d/c from ED?: No Referrals: Filiberto Smiley MD [Primary Care Provider] - 1-2 days Time of Disposition: 22:28
[2024-07-27] MEDS: FAMOTIDINE 20 MG/2 ML VIAL IV STA (19:55)
[2024-07-27] MEDS: methylPREDNISolone SOD SUCCI 125 MG/2 ML VIAL IV STA (19:58)
[2024-07-27 22:09] VITALS: RESP 16
[2024-07-27 22:51] VITALS: BP 105/66; PULSE 76
== END 2024-07-27 23:04 | disposition home or self-care (01) ==
LOC: EC 19:18
DX: L50.9 Urticaria, unspecified (principal); Z88.1 Allergy status to other antibiotic agents; Z88.2 Allergy status to sulfonamides; Z88.5 Allergy status to narcotic agent; Z88.6 Allergy status to analgesic agent; Z88.8 Allergy status to other drugs, medicaments and biological substances
CPT/HCPCS: 99284; 96374; 96375; J3490; J2919